=== PATIENT | male | born 1990 | race African-American/Black ===

== ENCOUNTER 2018-04-03 20:35 | Emergency (ER) | payer MEDICAID, OTHER ==
[~2018-04-03] VITALS: Ht 167.6 cm; Wt 81.8 kg
[~2018-04-03 20:35] MED LIST: UNK HTN MED PO; [UNRECOGNIZED DRUG - REMARK] PO
[2018-04-03] MEDS ORDERED: LEVE500T53 PO (20:43)
[2018-04-03 21:04] LABS: GLUCOSE,POINT OF CARE 94 MG/DL (70-110)
[2018-04-03] MEDS ORDERED: LevETIRAcetam 500 MG in DEXTROSE 5%-WATER 100 ML IV ONE (21:15)
[2018-04-03] MEDS ORDERED: SODIUM CHLORIDE 0.9% 1,000 ML IV ONE ×2 (21:15→22:15)
[2018-04-03 21:17] LABS: BAND NEUTROPHILS % (MANUAL) 0 % (0-5)
[2018-04-03 21:18] LABS: HEMATOCRIT 44.9 % (41-53); MEAN CORPUSCULAR HEMOGLOBIN 25.9 pg (26.0-34.0); MEAN CORPUSCULAR HGB CONC 33.5 G/dL (31.0-37.0); MEAN CORPUSCULAR VOLUME 78 fL (80-100); PLATELET COUNT (AUTO) 192 K/uL (150-450); RED CELL DISTRIBUTION WIDTH 14.6 % (11.5-14.5)
[2018-04-03 21:28] LABS: ANION GAP 7 mmol/L (8-16); CALCIUM, TOTAL 9.7 mg/dL (8.8-10.5); CARBON DIOXIDE 26 mmol/L (22-29); CHLORIDE 105 mmol/L (98-107); CREATININE 0.99 mg/dL (0.60-1.30); GLOMERULAR FILTR. RATE CALC > 60 mL/min (>60); GLUCOSE,RANDOM 90 mg/dL (70-110); POTASSIUM 3.9 mmol/L (3.5-5.1); SODIUM SERUM 138 mmol/L (136-145); UREA NITROGEN, BLOOD 14 mg/dL (7-18)
[2018-04-03 21:33] LABS: ALANINE AMINOTRANSFERASE 63 U/L (12-78); ALKALINE PHOSPHATASE 93 U/L (46-116); ASPARTATE AMINOTRANSFERASE 32 U/L (15-37); BILIRUBIN,TOTAL 0.2 mg/dL (0.1-1.0); TOTAL PROTEIN, SERUM 7.8 g/dL (6.4-8.2)
[2018-04-03 21:56] LABS: APPEARANCE,URINE CLEAR (CLEAR); BILIRUBIN,URINE NEGATIVE (NEGATIVE); GLUCOSE, URINE (UA) NEGATIVE (NEGATIVE); KETONES,URINE NEGATIVE (NEGATIVE); LEUKOCYTE ESTERASE ,URINE NEGATIVE (NEGATIVE); NITRATE,URINE NEGATIVE (NEGATIVE); OCCULT BLOOD,URINE NEGATIVE (NEGATIVE); PROTEIN,URINE NEGATIVE (NEGATIVE); UROBILINOGEN,URINE 0.2 mg/dL (<=1.0)
[2018-04-03 23:10] VITALS: BP 137/98
[2018-04-04 01:02] LABS: EOSINOPHILS % (MANUAL) 1 % (1-6); LYMPHOCYTES % (MANUAL) 40 % (22-44); MONOCYTES % (MANUAL) 8 % (2-9); SEGMENTED NEUTROPHILS % 51 % (40-70)
[2018-04-04 01:03] LABS: PLATELET MORPHOLOGY COMMENT GIANT PLTS PRESENT
== END 2018-04-03 23:11 | disposition home or self-care (01) ==
LOC: EMS 20:36
DX: E86.9 Volume depletion, unspecified (principal); R55 Syncope and collapse; G40.909 Epilepsy, unspecified, not intractable, without status epilepticus; I10 Essential (primary) hypertension; Z79.899 Other long term (current) drug therapy
CPT/HCPCS: 36415; 80053; 81003; 82962; 85007; 85027; 96365; 99284; J0712; J7030; J7060

== ENCOUNTER 2018-11-08 15:36 | Emergency (ER) | payer OTHER ==
[~2018-11-08] VITALS: Ht 167.6 cm; Wt 84.1 kg
[~2018-11-08 15:36] MED LIST changes: +LEVE500T53 PO; -UNK HTN MED PO; -[UNRECOGNIZED DRUG - REMARK] PO
[2018-11-08 17:46] VITALS: BP 140/92
== END 2018-11-08 18:16 | disposition home or self-care (01) ==
LOC: EMS 15:36
DX: F10.20 Alcohol dependence, uncomplicated (principal); I10 Essential (primary) hypertension

== ENCOUNTER 2019-01-11 21:40 | Emergency (ER) | payer MEDICAID, OTHER ==
[~2019-01-11] VITALS: Ht 170.2 cm; Wt 77.3 kg
[2019-01-11] MEDS ORDERED: ARIP10TA16 PO (22:29)
[2019-01-11] MEDS ORDERED: TRAZ-184 PO (22:29)
[2019-01-11 22:52] LABS: BASOPHILS % (AUTO) 0.7 % (0.0-2.0); EOSINOPHILS % (AUTO) 1.2 % (1.0-6.0); HEMOGLOBIN 14.9 g/dL (13.5-17.5); LYMPHOCYTES # (AUTO) 1.4 K/uL (1.0-4.8); LYMPHOCYTES % (AUTO) 34.8 % (22.0-44.0); MEAN CORPUSCULAR HGB CONC 31.6 G/dL (31.0-37.0); MEAN CORPUSCULAR VOLUME 82 fL (80-100); MONOCYTES # (AUTO) 0.4 K/uL (0.1-1.0); MONOCYTES % (AUTO) 9.3 % (2.0-9.0); NEUTROPHILS # (AUTO) 2.2 K/uL (1.8-7.7); PLATELET COUNT (AUTO) 210 K/uL (150-450); RED BLOOD CELL COUNT(AUTO) 5.72 MIL/uL (4.50-5.90)
[2019-01-11 23:07] LABS: ANION GAP 8 mmol/L (8-16); CALCIUM, TOTAL 9.4 mg/dL (8.8-10.5); CARBON DIOXIDE 28 mmol/L (22-29); CHLORIDE 104 mmol/L (98-107); GLOMERULAR FILTR. RATE CALC > 60 mL/min (>60); GLUCOSE,RANDOM 92 mg/dL (70-110); SODIUM SERUM 140 mmol/L (136-145); UREA NITROGEN, BLOOD 11 mg/dL (7-18)
[2019-01-11 23:08] LABS: AMPHET/METH SCREEN,URINE NEGATIVE (NEGATIVE); BARBITURATE SCREEN, URINE NEGATIVE (NEGATIVE); BENZODIAZEPINES SCREEN,URINE NEGATIVE (NEGATIVE); CANNABINOID SCREEN,URINE NEGATIVE (NEGATIVE); COCAINE SCREEN,URINE NEGATIVE (NEGATIVE); METHADONE SCREEN, URINE NEGATIVE (NEGATIVE); OPIATE SCREEN,URINE NEGATIVE (NEGATIVE)
[2019-01-11 23:09] LABS: PHENCYCLIDINE SCREEN,URINE NEGATIVE (NEGATIVE)
[2019-01-11 23:12] LABS: ALANINE AMINOTRANSFERASE 45 U/L (12-78); ALBUMIN 3.9 g/dL (3.4-5.0); ALKALINE PHOSPHATASE 85 U/L (46-116); ASPARTATE AMINOTRANSFERASE 20 U/L (15-37); BILIRUBIN,TOTAL 0.2 mg/dL (0.1-1.0); TOTAL PROTEIN, SERUM 7.4 g/dL (6.4-8.2)
[2019-01-12 01:40] VITALS: BP 142/76
== END 2019-01-12 02:45 | disposition home or self-care (01) ==
LOC: EMS 21:41
DX: S00.03XA Contusion of scalp, initial encounter (principal); G40.909 Epilepsy, unspecified, not intractable, without status epilepticus; I10 Essential (primary) hypertension; F17.210 Nicotine dependence, cigarettes, uncomplicated; W01.0XXA Fall on same level from slipping, tripping and stumbling without subsequent striking against object, initial encounter; Y93.89 Activity, other specified; Y92.89 Other specified places as the place of occurrence of the external cause; Y99.8 Other external cause status
CPT/HCPCS: 36415; 70450; 80053; 80307; 85025; 99284; 99406; G0480